=== PATIENT | female | born 1955 | race Two or more races ===

== ENCOUNTER 2024-08-13 14:34 | Emergency (ER) | payer MEDICARE ==
[~2024-08-13] VITALS: Ht 160 cm; Wt 55.0 kg
[2024-08-13 14:51] VITALS: TEMP 36.9; O2SAT 99
[2024-08-13] MEDS ORDERED: ALBU18HF2 IH (17:02)
[2024-08-13 17:32] VITALS: BP 133/76; PULSE 74; RESP 14; O2SAT 99
== END 2024-08-13 17:36 | disposition home or self-care (01) ==
LOC: ER 14:34
DX: R05.8 Other specified cough (principal); R07.0 Pain in throat; I10 Essential (primary) hypertension
CPT/HCPCS: 71045; 99283